=== PATIENT | male | born 2000 | race Caucasian/White ===

== ENCOUNTER 2022-12-31 19:02 | Emergency (ER) | payer OTHER ==
[~2022-12-31] VITALS: Ht 167.6 cm; Wt 79.5 kg
[2022-12-31 19:10] VITALS: BP 138/85
[2022-12-31 19:38] LABS: COVID AG,FIA SOURCE NASAL SWAB
[2022-12-31 20:26] LABS: RAPID GROUP A STREP NEGATIVE (NEGATIVE)
[2022-12-31 20:48] LABS: INFLUENZA TYPE A NEGATIVE FOR TYPE A (NEGATIVE); INFLUENZA TYPE B NEGATIVE FOR TYPE B (NEGATIVE)
[2022-12-31] MEDS ORDERED: GUAIFDM PO (21:22)
[2022-12-31] MEDS ORDERED: ACET-66 PO (21:22)
[2022-12-31] MEDS ORDERED: IBUP-1554 PO (21:22)
[2022-12-31] MEDS ORDERED: BENZ-227 PO (21:22)
== END 2022-12-31 22:00 | disposition home or self-care (01) ==
LOC: EMS 19:07
DX: J06.9 Acute upper respiratory infection, unspecified (principal); F12.90 Cannabis use, unspecified, uncomplicated; Z20.822 Contact with and (suspected) exposure to COVID-19
CPT/HCPCS: 87430; 87804; 99283